=== PATIENT | female | born 1960 | race Caucasian/White ===

== ENCOUNTER 2017-08-30 19:54 | Emergency (ER) | payer OTHER ==
[2017-08-30 20:53] VITALS: BP 119/71
[2017-08-30] MEDS ORDERED: Oseltamivir CAP* 75 MG CAP PO ONE (21:40)
[2017-08-30] MEDS ORDERED: Acetaminophen TAB* 325 MG PO ONE (21:42)
--- NOTE | 2017-08-30 21:45 | UC ---
FLU HPI - History of Current Complaint Chief Complaint: UCRespiratory Stated Complaint: SINUS PAIN/ SORE WRIST Time Seen by Provider: 08/30/17 21:27 Hx Obtained From: Patient Hx Last Menstrual Period: [employer] Onset/Duration: Sudden Onset - started yesterday with fever, fatigue, body aches Severity Currently: Mild Severity Initially: Moderate Pain Intensity: 8 Related Hx: Possible Flu/Infectious Exposure - sister +flu - Allergy/Home Medications Allergies/Adverse Reactions: Allergies Allergy/AdvReac Type Severity Reaction Status Date / Time Iodinated Contrast- Oral and Allergy See Comment Verified 08/30/17 20:55 IV Dye PMH/Surg Hx/FS Hx/Imm Hx Previously Healthy: Yes - Surgical History Surgical History: None - Family History Known Family History: Positive: None - Social History Occupation: Unemployed Lives: With Family Alcohol Use: Daily Alcohol Amount: 2 -3 /day Substance Use Type: None Smoking Status (MU): Light Every Day Tobacco Smoker Cessation Counseling: Patient Advised to Stop Review of Systems Constitutional: Fever, Chills, Fatigue Skin: Negative Eyes: Negative ENT: Sore Throat, Sinus Congestion, Other - sneezing Respiratory: Negative Cardiovascular: Negative Neurological: Negative Psychological: Negative Is Patient Immunocompromised?: No All Other Systems Reviewed And Are Negative: Yes Physical Exam Triage Information Reviewed: Yes Appearance: Well-Appearing, No Pain Distress, Well-Nourished Vital Signs: Initial Vital Signs Temp 102.6 F 08/30/17 20:46 Pulse 92 08/30/17 20:46 Resp 18 08/30/17 20:46 BP 119/71 08/30/17 20:46 Pulse Ox 97 08/30/17 20:46 Vital Signs Reviewed: Yes Eyes: Positive: Conjunctiva Clear ENT: Positive: Pharynx normal, Nasal congestion, TMs normal Neck exam: Normal Neck: Positive: No Lymphadenopathy Respiratory: Positive: Lungs clear Cardiovascular Exam: Normal Cardiovascular: Positive: RRR Neurological Exam: Normal Psychological Exam: Normal Skin Exam: Normal Flu Course/Dx - Differential Dx/Diagnosis Differential Diagnosis/HQI/PQRI: Influenza, Upper Respiratory Infection Provider Diagnoses: Influenza Discharge - Discharge Plan Condition: Stable Disposition: HOME Prescriptions: Oseltamivir CAP* [Tamiflu CAP*] 75 mg PO BID #10 cap Patient Education Materials: Influenza (ED) Referrals: No Primary Care Phys,NOPCP [Primary Care Provider] - Additional Instructions: drink plenty of fluids and use over the counter tylenol or ibuprofen for pain and fever Report to ER if at any time your symptoms worsen take Tamiflu as directed Notify close contact that you have Influenza and encourage them to contact their provider to discuss possible need for treatment
[2017-08-30] MEDS ORDERED: Albuterol HFA INHALER* 8 gm MDI INH ONE (21:48)
== END 2017-08-30 21:57 | disposition home or self-care (01) ==
LOC: UCEAST 19:54
DX: J11.1 Influenza due to unidentified influenza virus with other respiratory manifestations (principal); Z91.041 Radiographic dye allergy status; F17.210 Nicotine dependence, cigarettes, uncomplicated
CPT/HCPCS: 87502; 99203; A9270-GY; G0463